=== PATIENT | female | born 1955 | race Caucasian/White ===

== ENCOUNTER 2017-12-20 09:18 | Emergency (ER) | payer OTHER ==
[~2017-12-20] VITALS: Ht 165.1 cm; Wt 100.0 kg
[2017-12-20 10:10] LABS: HEMATOCRIT 39.6 % (37.0-47.0); HEMOGLOBIN 13.2 g/dl (12.0-16.0); IMMATURE GRANULOCYTES 0.4 % (0.0-1.0); MEAN CELL VOLUME 91.5 fL CALC (80.0-100.0); MEAN CORPUSCULAR HGB 30.5 pG CALC (26.0-32.0); MEAN CORPUSCULAR HGB CONC 33.3 g/L CALC (32.0-36.0); NEUT# 4.56 thou/uL (2.00-7.15); RED BLOOD COUNT 4.33 mill/uL (4.20-5.60); RED CELL DISTRI WIDTH 12.9 % (11.5-15.5)
[2017-12-20 10:40] LABS: ALBUMIN 3.9 g/dL (3.2-5.0); ALKALINE PHOSPHATASE 95 u/l (38-126); ANION GAP 18 (6-22 (CALC)); BILIRUBIN, TOTAL 0.4 mg/dL (0.0-1.4); BUN 15 mg/dL (7-17); BUN/CREATININE RATIO 21 (12-20 (CALC)); CARBON DIOXIDE 23 mmol/l (22-30); CHLORIDE 106 mmol/l (95-108); CREATININE 0.8 mg/dL (0.5-1.0); GFR > 60 ML/MIN (>=60 (CALC)); GFR FOR AFR.AMER. > 60 ML/MIN (>=60 (CALC)); LIPASE 65 u/l (23-300); POTASSIUM 4.2 mmol/l (3.5-5.1); SGOT/AST 24 u/l (14-36); SGPT/ALT 31 u/l (9-52); SODIUM 142 mmol/l (137-146); TOTAL PROTEIN 6.6 g/dL (6.3-8.2)
[2017-12-20 11:00] LABS: URINE BILIRUBIN - DIPSTICK NEGATIVE (NEGATIVE); URINE BLOOD DIPSTICK NEGATIVE (NEGATIVE); URINE COLOR YELLOW; URINE GLUCOSE - DIPSTICK NEGATIVE (NEGATIVE); URINE KETONE NEGATIVE (NEGATIVE); URINE LEUK ESTERASE NEGATIVE (NEGATIVE); URINE NITRITE - DIPSTICK NEGATIVE (Negative); URINE PH 6.5 (4.5-8.0); URINE PROTEIN - DIPSTICK NEGATIVE (NEG-TRACE); URINE UROBILINOGEN - DIPSTICK 0.2 E.U./dL (0.2)
[2017-12-20 11:37] LABS: URINE CLARITY CLEAR
[2017-12-20] MEDS ORDERED: FLOXIN OTIC0.3 % OT (12:08)
[2017-12-20] MEDS ORDERED: ONDANSETRON4 MG PO (12:08)
[2017-12-20 12:28] VITALS: BP 153/91
== END 2017-12-20 12:32 | disposition home or self-care (01) | DRG 149 ==
LOC: ED 09:18
PROVIDERS: Family Medicine
DX: R42 Dizziness and giddiness (principal); H66.91 Otitis media, unspecified, right ear; R10.13 Epigastric pain
CPT/HCPCS: Q9967

== ENCOUNTER 2020-10-10 20:14 | Emergency (ER) | payer BC ==
[~2020-10-10] VITALS: Ht 165.1 cm; Wt 97.7 kg
[~2020-10-10 20:14] MED LIST: FLOXIN OTIC0.3 % OT; ONDANSETRON4 MG PO
[2020-10-10] MEDS ORDERED: SIMVASTATIN20 MG PO (20:54)
[2020-10-10] MEDS ORDERED: EFFEXOR XR37.5 MG PO (20:55)
[2020-10-10] MEDS ORDERED: TOPROL XL25 MG PO (20:56)
[2020-10-10] MEDS ORDERED: ASPIRIN 81 LOW81 MG PO (20:57)
[2020-10-10 23:44] VITALS: BP 161/84
== END 2020-10-10 23:42 | DRG 563 ==
LOC: ED 20:14
DX: S52.501A Unspecified fracture of the lower end of right radius, initial encounter for closed fracture (principal); S63.014A Dislocation of distal radioulnar joint of right wrist, initial encounter; I48.91 Unspecified atrial fibrillation; F41.9 Anxiety disorder, unspecified; W01.0XXA Fall on same level from slipping, tripping and stumbling without subsequent striking against object, initial encounter; Y93.89 Activity, other specified; Y92.009 Unspecified place in unspecified non-institutional (private) residence as the place of occurrence of the external cause; Z20.822 Contact with and (suspected) exposure to COVID-19